=== PATIENT | female | born 1950 | race Caucasian/White ===

== ENCOUNTER 2022-06-24 12:28 | Outpatient (CLI) | payer MEDICARE, OTHER ==
--- NOTE | 2022-06-24 18:27 | DEXA Report ---
PROCEDURE: Dexa Spine and/or Hip INDICATIONS: POST MENOPAUSAL TECHNIQUE: Dual energy x-ray absorptiometry (DXA) was performed on a [employer] System. Regions measur ed are the AP Spine, femoral neck, and if needed forearm. COMPARISON: None. FINDINGS: Lumbar Spine: Bone Mineral Density 1.349 g/cm/cm,T score 1.4, normal Left Femoral Neck: Bone Mineral Density 0.941 g/cm/cm, T score -0.6, normal Left Hip: Bone Mineral Density 1.090 g/cm/cm,T score 0.7, normal (T score greater or equal to -1.0: NORMAL) (T score from -1.1 to -2.4: OSTEOPENIA) (T score less than or equal to -2.5 to: OSTEOPOROSIS) Impression: Normal bone mineral density Patients with diagnosis of osteoporosis or osteopenia should have regular bone mineral density assess ment. For those eligible for Medicare, routine testing is allowed once every 2 years. Testing frequ ency can be increased for patients who have rapidly progressing disease or for those who are receivin g medical therapy to restore bone mass. Reviewed by: Joaquín Lau MD on 06/24/2022 5:26 PM [place] Approved by: Joaquín Lau MD on 06/24/2022 5:26 PM [place] Station ID: [id number]
== END 2022-06-24 12:29 | disposition home or self-care (01) ==
LOC: DI 12:28
PROVIDERS: ATTEND Nurse Practitioner Acute Care
DX: Z78.0 Asymptomatic menopausal state (principal)

== ENCOUNTER 2023-04-13 13:16 | Outpatient (CLI) | payer MEDICARE, OTHER ==
[2023-04-13 19:41] LABS: BASOPHILS # (AUTO) 0.1 10^3/uL (0.0-0.1); BASOPHILS % (AUTO) 0.9 %; EOSINOPHILS # (AUTO) 0.1 10^3/uL (0.0-0.7); EOSINOPHILS % (AUTO) 1.4 %; HCT - HEMATOCRIT 36.8 % (37.0-47.0); HGB - HEMOGLOBIN 11.9 g/dL (12.0-16.0); LYMPHOCYTES # (AUTO) 2.6 10^3/uL (1.5-3.5); LYMPHOCYTES % (AUTO) 39.9 %; MEAN CORPUSCULAR HEMOGLOBIN 29.7 pg (27.0-31.0); MEAN CORPUSCULAR HGB CONC 32.3 g/dL (32.0-36.0); MEAN CORPUSCULAR VOLUME 91.8 fL (81.0-99.0); MEAN PLATELET VOLUME 9.9 fL (7.9-10.8); MONOCYTES # (AUTO) 0.4 10^3/uL (0.0-1.0); MONOCYTES % (AUTO) 6.5 %; NEUTROPHILS # (AUTO) 3.3 10^3/uL (1.5-6.6); PLT - PLATELET COUNT 226 10^3/uL (130-450); RED BLOOD COUNT 4.01 10^6/uL (4.20-5.40); RED CELL DISTRIBUTION WIDTH 13.1 % (12.0-15.0); WHITE BLOOD COUNT 6.4 x10^3/uL (4.8-10.8)
[2023-04-13 20:32] LABS: ALBUMIN 4.3 g/dL (3.2-5.5); ALBUMIN/GLOBULIN RATIO 1.7 (1.0-2.2); ALKALINE PHOSPHATASE 44 IU/L (42-121); ALT ALANINE AMINOTRANSFERASE 22 IU/L (10-60); AST ASPARTATE AMINOTRANSFERASE 19 IU/L (10-42); BILIRUBIN,TOTAL 0.6 mg/dL (0.2-1.0); BUN - BLOOD UREA NITROGEN 13 mg/dL (6-20); CALCIUM 9.5 mg/dL (8.5-10.3); CARBON DIOXIDE - CO2 27 mmol/L (21-32); CHLORIDE 107 mmol/L (101-111); CHOL/HDL RATIO 3.5 (<4.4); CHOLESTEROL 178 mg/dL; CREATININE 0.8 mg/dL (0.6-1.3); GFR - MDRD 71 (>89); GLUCOSE 91 mg/dL (74-104); HDL CHOLESTEROL 51 mg/dL; LDL CHOLESTEROL,CALCULATED 87 mg/dL; LDL/HDL RATIO 1.7 (<4.4); POTASSIUM 3.8 mmol/L (3.5-4.5); SODIUM 142 mmol/L (135-145); TOTAL PROTEIN 6.9 g/dL (6.4-8.9); TRIGLYCERIDES 199 mg/dL (48-352); VLDL CHOLESTEROL 40 mg/dL
[2023-04-13 20:40] LABS: THYROID STIMULATING HORMONE 5.68 uIU/mL (0.34-5.60)
[2023-04-15 08:10] LABS: HCV AB Non Reactive (Non Reactive)
== END 2023-04-13 13:17 | disposition home or self-care (01) ==
LOC: LAB.S 13:16
PROVIDERS: ATTEND Nurse Practitioner Acute Care
DX: E78.5 Hyperlipidemia, unspecified (principal); Z79.899 Other long term (current) drug therapy; E06.3 Autoimmune thyroiditis; Z11.59 Encounter for screening for other viral diseases
CPT/HCPCS: 36415; 80053; 80061; 83721; 84439; 84443; 85025; 86803

== ENCOUNTER 2023-04-20 07:42 | Outpatient (CLI) | payer MEDICARE, OTHER ==
--- NOTE | 2023-04-28 10:19 | Mammography Report ---
BILATERAL DIGITAL SCREENING MAMMOGRAM 3D/2D: 04/20/2023 CLINICAL: Routine screening. Family history of breast cancer. No prior exams were available for comparison. There are scattered areas of fibroglandular density in both breasts (category b / 25%-50% glandular t issue). There is an asymmetry in the right breast middle depth upper region seen on the mediolateral oblique view only. No other significant masses, calcifications, or other findings are seen in either breast. IMPRESSION: INCOMPLETE: NEEDS ADDITIONAL IMAGING EVALUATION The asymmetry in the right breast is indeterminate. A diagnostic mammogram and ultrasound is recomme nded. Based on the Tyrer Cuzick model (a risk assessment model) the patients lifetime risk is 6.2% and her 10 year risk is 4.6%. According to the ACR, ACS, and NCCN guidelines, an annual breast MRI exam sravan g with mammogram is recommended if the patients lifetime risk is 20% or greater. This exam was interpreted at Station ID: [id number]. NOTE: For mammograms, a report in lay terms will be sent to the patient. Approximately 15% of breast malignancies will not be visualized mammographically. In the management of a palpable breast mass, a negative mammogram must not discourage biopsy of a clinically suspicious lesion. Electronically Signed By: Melissa Guerrero M.D., PH.D eb/:04/28/2023 00:59:55 ACR BI-RADS Category 0: Incomplete 3340F PARENCHYMAL PATTERN: (A) - The breast(s) demonstrate(s) scattered fibroglandular densities. BI-RADS CATEGORY: (0) - 0 Mammo and [place] [id number] Immediate follow-up LATERALITY: (B)
== END 2023-04-20 07:43 | disposition home or self-care (01) ==
LOC: DI.S 07:42
DX: Z12.31 Encounter for screening mammogram for malignant neoplasm of breast (principal); Z80.3 Family history of malignant neoplasm of breast; R92.323 Mammographic fibroglandular density, bilateral breasts; R92.8 Other abnormal and inconclusive findings on diagnostic imaging of breast

== ENCOUNTER 2023-06-16 07:40 | Outpatient (CLI) | payer MEDICARE, OTHER ==
--- NOTE | 2023-06-16 15:55 | Mammography Report ---
UNILATERAL RIGHT DIGITAL DIAGNOSTIC MAMMOGRAM 3D/2D WITH SPOT COMPRESSION: 06/16/2023 CLINICAL: Patient returns today to evaluate an asymmetry in the right breast. Comparison is made to exam dated: 04/20/2023 mammogram - [facility]. There are scattered areas of fibroglandular density in the right breast (category b / 25%-50% glandul ar tissue). There is an asymmetry in the right breast middle depth superior region seen on the mediolateral obliq ue view only. This is seen in additional views. No other significant masses or calcifications are seen in the breast. IMPRESSION: INCOMPLETE: NEEDS ADDITIONAL IMAGING EVALUATION The asymmetry in the right breast middle depth superior region seen on the mediolateral oblique view only is indeterminate. An ultrasound is recommended. Based on the Tyrer Cuzick model (a risk assessment model) the patient's lifetime risk is 6.2% and her 10 year risk is 4.6%. According to the ACR, ACS, and NCCN guidelines, an annual breast MRI exam sravan g with mammogram is recommended if the patients lifetime risk is 20% or greater. This exam was interpreted at Station ID: [id number]. NOTE: For mammograms, a report in lay terms will be sent to the patient. Approximately 15% of breast malignancies will not be visualized mammographically. In the management of a palpable breast mass, a negative mammogram must not discourage biopsy of a clinically suspicious lesion. Electronically Signed By: Emmanuel Ocampo M.D. lc/:06/16/2023 09:27:00 ACR BI-RADS Category 0: Incomplete 3340F PARENCHYMAL PATTERN: (A) - The breast(s) demonstrate(s) scattered fibroglandular densities. BI-RADS CATEGORY: (0) - 0 Ultrasound [id number] Immediate follow-up LATERALITY: (B)
--- NOTE | 2023-06-16 15:55 | Ultrasound Report ---
LIMITED ULTRASOUND OF RIGHT BREAST: 06/16/2023 CLINICAL: Patient returns today to evaluate a focal asymmetry in the right breast. Comparison is made to exams dated: 06/16/2023 mammogram and 04/20/2023 mammogram - [facility]. Real-time ultrasound of the right breast 11-1 o'clock region was performed. Hoff scale images of the real-time examination were reviewed. No significant sonographic findings in the breast. IMPRESSION: PROBABLY BENIGN There is no abnormality seen in the right breast to correspond with the mammography finding. 11-1:00 were scanned. A follow-up mammogram in 6 months is recommended to demonstrate stability. This exam was interpreted at Station ID: [id number]. Electronically Signed By: Emmanuel Ocampo M.D. lc/:06/16/2023 09:28:11 Ultrasound BI-RADS: 3 Probably benign BI-RADS CATEGORY: (3) - 3 Mammogram [id number] 6 month follow-up LATERALITY: (B)
== END 2023-06-16 07:41 | disposition home or self-care (01) ==
LOC: DI 07:40
PROVIDERS: ATTEND Nurse Practitioner Acute Care
DX: R92.8 Other abnormal and inconclusive findings on diagnostic imaging of breast (principal); R92.321 Mammographic fibroglandular density, right breast

== ENCOUNTER 2023-10-19 06:45 | Outpatient (CLI) | payer MEDICARE, OTHER | END 2023-10-19 23:46 | disposition critical access hospital (66) | LOC: EMS 06:45 | DX: R10.32 Left lower quadrant pain (principal); R10.814 Left lower quadrant abdominal tenderness; M54.50 Low back pain, unspecified; R11.2 Nausea with vomiting, unspecified; R42 Dizziness and giddiness; R61 Generalized hyperhidrosis; R00.1 Bradycardia, unspecified | CPT/HCPCS: A0425; A0427 ==

== ENCOUNTER 2023-10-19 07:22 | Day surgery (SDC) | payer MEDICARE, OTHER ==
[2023-10-19] MEDS: SODIUM CHLORIDE 0.9% 1,000 ML IV STA (07:42)
[2023-10-19] MEDS: MORPHINE 2 MG/ML CARPUJECT IVP STA ×2 (07:43→09:27)
[2023-10-19] MEDS: ONDANSETRON 4 MG/2 ML VIAL IVP STA (07:48)
[2023-10-19 07:55] LABS: BASOPHILS # (AUTO) 0.1 10^3/uL (0.0-0.1); BASOPHILS % (AUTO) 0.4 %; EOSINOPHILS # (AUTO) 0.1 10^3/uL (0.0-0.7); EOSINOPHILS % (AUTO) 0.9 %; HCT - HEMATOCRIT 36.5 % (37.0-47.0); HGB - HEMOGLOBIN 11.9 g/dL (12.0-16.0); LYMPHOCYTES # (AUTO) 2.8 10^3/uL (1.5-3.5); LYMPHOCYTES % (AUTO) 18.3 %; MEAN CORPUSCULAR HGB CONC 32.6 g/dL (32.0-36.0); MEAN PLATELET VOLUME 9.3 fL (7.9-10.8); MONOCYTES % (AUTO) 6.6 %; NEUTROPHILS # (AUTO) 11.2 10^3/uL (1.5-6.6); NEUTROPHILS % (AUTO) 73.4 %; PLT - PLATELET COUNT 236 10^3/uL (130-450); RED CELL DISTRIBUTION WIDTH 13.3 % (12.0-15.0); WHITE BLOOD COUNT 15.2 x10^3/uL (4.8-10.8)
[2023-10-19 08:00] LABS: INR 2.5 (0.8-1.2)
[2023-10-19] MEDS ORDERED: iohexoL-300 100 ML VIAL ONE (08:09)
[2023-10-19 08:10] LABS: ALBUMIN 4.1 g/dL (3.2-5.5); ALBUMIN/GLOBULIN RATIO 1.6 (1.0-2.2); BILIRUBIN,TOTAL 0.6 mg/dL (0.2-1.0); CALCIUM 9.7 mg/dL (8.5-10.3); CREATININE 1.8 mg/dL (0.6-1.3); TOTAL PROTEIN 6.7 g/dL (6.4-8.9)
--- NOTE | 2023-10-19 08:20 | ED Physician Documentation ---
PD HPI ABD PAIN - Stated complaint Stated Complaint: ABD PX/N/V - Chief complaint Chief Complaint: Abd Pain - History obtained from History obtained from: Patient, EMS - Additional information Additional information: 73-year-old female presents for evaluation of left lower quadrant abdominal pain with nausea and vomiting for 1 day. Symptoms began yesterday but were intermittent, this morning when patient woke up pain was constant and severe, prompting a call to 911. Patient received 150 mcg of fentanyl in route. Patient continuing to complain of left lower quadrant pain on arrival. She has never felt pain like this before. Denies hx of diverticulitis or kidney stones Review of Systems Constitutional: denies: Fever, Chills Cardiac: denies: Chest pain / pressure, Palpitations, Calf pain Respiratory: denies: Dyspnea, Cough, Wheezing GI: reports: Abdominal Pain, Nausea, Vomiting. denies: Constipation, Diarrhea Musculoskeletal: denies: Neck pain, Back pain, Extremity pain Neurologic: denies: Generalized weakness, Focal weakness, Numbness PD PAST MEDICAL HISTORY - Past Medical History Past Medical History: Yes Cardiovascular: Hypertension, High cholesterol Endocrine/Autoimmune: HyPOthyroidism GI: Other Other Past Medical History: IBS - Present Medications Home Medications: Ambulatory Orders Medication Instructions Recorded Confirmed Atorvastatin [Lipitor] 20 mg PO QPM 10/19/23 10/19/23 Docusate Sodium 100Mg Capsule 100 mg PO DAILY #7 cap 10/19/23 [Colace 100Mg Capsule] Levothyroxine [Synthroid] 125 mcg PO QDAC 10/19/23 10/19/23 Rivaroxaban [Xarelto] 20 mg PO DAILY 10/19/23 10/19/23 cephALEXin [Keflex] 500 mg PO ONCE #1 cap 10/19/23 oxyCODONE [Roxicodone] 5 mg PO Q4H PRN #6 tablet 10/19/23 - Allergies Allergies/Adverse Reactions: Allergies Allergy/AdvReac Type Severity Reaction Status Date / Time Sulfa (Sulfonamide AdvReac Anaphylaxis Verified 10/19/23 07:33 Antibiotics) - Social History Does the pt smoke?: No Smoking Status: Never smoker Does the pt drink ETOH?: No Does the pt have substance abuse?: No PD ED PE NORMAL - Vitals Vital signs reviewed: Yes - General General: Alert and oriented X 3, Well developed/nourished, Other (uncomfortable, in pain) - Neck Neck: Supple, no meningeal sign - Cardiac Cardiac: RRR - Respiratory Respiratory: No respiratory distress, Clear bilaterally - Abdomen Abdomen: Soft, Non distended, Other (LLQ tenderness to deep palpation) - Derm Derm: Normal color, Warm and dry, No rash - Extremities Extremities: No deformity, No tenderness to palpate, Normal ROM s pain, No edema - Neuro Neuro: Alert and oriented X 3, salvager helper 2-12 intact, No motor deficit, Normal speech Results - Vitals Vitals: Vital Signs - 24 hr 10/19/23 10/19/23 10/19/23 07:28 09:00 11:00 Temperature 36.1 C L Heart Rate 55 L 55 L 67 Respiratory 16 18 23 Rate Blood Pressure 153/64 H 166/86 H 156/74 H O2 Saturation 95 98 100 10/19/23 10/19/23 10/19/23 12:36 12:40 12:45 Temperature 36.5 C Heart Rate 77 70 68 Respiratory 16 14 26 H Rate Blood Pressure 122/67 127/65 122/64 O2 Saturation 100 98 100 10/19/23 10/19/23 10/19/23 12:50 12:58 12:59 Temperature 36.7 C 36.7 C Heart Rate 72 65 64 Respiratory 17 14 14 Rate Blood Pressure 123/59 L 132/71 H 132/75 H O2 Saturation 93 94 94 10/19/23 10/19/23 10/19/23 13:22 13:50 14:24 Temperature Heart Rate 59 L 65 59 L Respiratory 14 18 20 Rate Blood Pressure 134/73 H 144/70 H 148/63 H O2 Saturation 93 93 98 Oxygen O2 Source Room air - Labs Labs: Laboratory Tests 10/19/23 10/19/23 10/19/23 07:35 07:35 07:35 WBC 15.2 H RBC 4.10 L Hgb 11.9 L Hct 36.5 L MCV 89.0 MCH 29.0 MCHC 32.6 RDW 13.3 Plt Count 236 MPV 9.3 Neut # (Auto) 11.2 H Lymph # (Auto) 2.8 [place] # (Auto) 1.0 Eos # (Auto) 0.1 Baso # (Auto) 0.1 Absolute Nucleated RBC 0.00 Nucleated RBC % 0.0 PT 26.0 H INR 2.5 H Sodium 138 Potassium 4.0 Chloride 104 Carbon Dioxide 22 Anion Gap 12.0 BUN 29 H Creatinine 1.8 H Estimated GFR (MDRD) 28 L Glucose 115 H Calcium 9.7 Total Bilirubin 0.6 AST 14 ALT 18 Alkaline Phosphatase 35 L Total Protein 6.7 Albumin 4.1 Globulin 2.6 Albumin/Globulin Ratio 1.6 Lipase 34 Urine Color Urine Clarity Urine pH Ur Specific [place] Urine Protein Urine Glucose (UA) Urine Ketones Urine Occult Blood Urine Nitrite Urine Bilirubin Urine Urobilinogen Ur Leukocyte Esterase Urine RBC Urine WBC Ur Squamous Epith Cells Urine Bacteria Ur Microscopic Review Urine Culture Comments 10/19/23 08:56 WBC RBC Hgb Hct MCV MCH MCHC RDW Plt Count MPV Neut # (Auto) Lymph # (Auto) [place] # (Auto) Eos # (Auto) Baso # (Auto) Absolute Nucleated RBC Nucleated RBC % PT INR Sodium Potassium Chloride Carbon Dioxide Anion Gap BUN Creatinine Estimated GFR (MDRD) Glucose Calcium Total Bilirubin AST ALT Alkaline Phosphatase Total Protein Albumin Globulin Albumin/Globulin Ratio Lipase Urine Color YELLOW Urine Clarity CLEAR Urine pH 6.0 Ur Specific [place] 1.020 Urine Protein NEGATIVE Urine Glucose (UA) NEGATIVE Urine Ketones TRACE Urine Occult Blood LARGE H Urine Nitrite NEGATIVE Urine Bilirubin NEGATIVE Urine Urobilinogen 0.2 (NORMAL) Ur Leukocyte Esterase NEGATIVE Urine RBC 11-25 H Urine WBC 0-3 Ur Squamous Epith Cells NONE SEEN Urine Bacteria None Seen Ur Microscopic Review INDICATED Urine Culture Comments NOT INDICATED PD Medical Decision Making - ED course Complexity details: reviewed old records, reviewed results, re-evaluated patient, considered differential, d/w patient, d/w nursing consultant ED course: Lower abdominal pain with nausea and vomiting. Abdomen is soft but she is reproducibly tender to palpation in the left lower quadrant without peritoneal signs. Has received fentanyl prior to arrival but is still in pain. Additional pain and nausea medications ordered. Labs and imaging ordered. Laboratory work is reviewed, patient has new elevation in creatinine compared to March 2023. Preliminary review of CT scan seems to show swelling behind the left kidney with small stone present. CT read as 3 mm stone with severe hydronephrosis. Patient has continued to require doses of pain medication and nausea medication. Patient's case discussed with Dr. Ng of urology, who stated that he could place the patient on the schedule for this afternoon and take her for stent placement. Maintenance fluids ordered, patient to be kept n.p.o. for anticipated procedure. Departure - Departure Disposition: ED Transfer to [facility] Clinical Impression: Kidney stone, RAEANN (acute kidney injury) Condition: Good
[2023-10-19 09:07] LABS: BILIRUBIN,URINE NEGATIVE (NEGATIVE); GLUCOSE, URINE (UA) NEGATIVE (NEGATIVE); KETONES,URINE (UA) TRACE mg/dL (NEGATIVE); LEUKOCYTE ESTERASE, URINE NEGATIVE (NEGATIVE); NITRITE,URINE NEGATIVE (NEGATIVE); OCCULT BLOOD,URINE LARGE (NEGATIVE); PROTEIN,URINE NEGATIVE (NEGATIVE); UROBILINOGEN,URINE 0.2 (NORMAL) E.U./dL (NORMAL)
[2023-10-19 09:09] LABS: CLARITY,URINE CLEAR (CLEAR)
[2023-10-19 09:18] LABS: BACTERIA,URINE None Seen /HPF (None Seen); SQUAMOUS EPITHELIAL CELL,UR NONE SEEN (<= Few); WBC,URINE 0-3 /HPF (0-5)
[2023-10-19] MEDS: PROMETHAZINE INJ 25 MG in SODIUM CHLORIDE 0.9% 50 ML IV STA (09:27)
--- NOTE | 2023-10-19 09:34 | CT Report ---
PROCEDURE: Abdomen/Pelvis WO INDICATIONS: LLQ PAIN, N/V TECHNIQUE: A CT scan of the abdomen and pelvis was performed without the use of intravenous contrast. Images we re recorded and evaluated at appropriate window settings. Reformats: coronal and sagittal. For radiat ion dose reduction, the following was used: automated exposure control, adjustment of mA and/or kV ac cording to patient size. COMPARISON: None. FINDINGS: Image quality: Diagnostic. Lower chest: Unremarkable. Liver: No contour-deforming mass benign calcification at the dome of the liver. Gallbladder: No radiopaque stones or wall thickening. Biliary tree: No intrahepatic or extrahepatic dilation, accounting for age. Spleen: No splenomegaly. Pancreas: No pancreatic ductal dilation. Adrenals: No adrenal nodule. Kidneys and ureters: At the level of L3-L4, there is a 3 mm obstructing left ureteral stone which res ults in severe left hydronephrosis and left perinephric stranding. No right renal stone or hydronephr osis. There are right peripelvic cysts. Stomach, bowel and peritoneum: No gastric or small bowel dilation. No abnormal wall thickening. No pa thologic free fluid. Lymph nodes: No central or retroperitoneal adenopathy. Vessels: No infrarenal aortic aneurysm. Reproductive organs: Unremarkable. Bladder: Bladder wall thickness is normal, accounting for underdistention. No calcified bladder stone s. Pelvic lymph nodes: No adenopathy by size criteria. Bones: No aggressive osseous abnormality. Other: No significant ventral or inguinal hernia. IMPRESSION: A 3 mm stone obstructs the proximal left ureter at the level of L3-L4 resulting in severe left hydron ephrosis and perinephric stranding. Reviewed by: Alex Huertas MD on 10/19/2023 9:33 AM PDT Approved by: Alex Huertas MD on 10/19/2023 9:33 AM PDT Station ID: [id number]
[2023-10-19] MEDS: SODIUM CHLORIDE 0.9% 1,000 ML IV SCH (10:09)
[2023-10-19] MEDS ORDERED: LIDOCAINE JELLY 2% 6 ML JEL.PF.APP ONE (10:15)
[2023-10-19] MEDS ORDERED: iohexoL-240 10 ML VIAL IVP ONE (10:15)
[2023-10-19] MEDS ORDERED: ONDANSETRON 4 MG/2 ML VIAL ONE (10:31)
[2023-10-19] MEDS ORDERED: DEXAMETHASONE 4 MG/ML VIAL ONE (10:31)
[2023-10-19] MEDS ORDERED: LIDOCAINE-PF 2% 10 ML AMP SUBQ ONE ×2 (10:31→12:11)
[2023-10-19] MEDS ORDERED: PROPOFOL 200 MG/20 ML VIAL IVP ONE ×2 (10:31→12:11)
[2023-10-19] MEDS ORDERED: fentaNYL 100 MCG/2 ML VIAL ONE (10:34)
[2023-10-19] MEDS ORDERED: METOCLOPRAMIDE 10 MG/2 ML VIAL IVP PRN (11:08)
[2023-10-19] MEDS ORDERED: ATROPINE ABBOJECT 1 MG/10 ML SYRINGE IVP PRN (11:08)
[2023-10-19] MEDS ORDERED: MORPHINE 2 MG/ML CARPUJECT IVP PRN (11:08)
[2023-10-19] MEDS ORDERED: NALOXONE 0.4 MG/ML VIAL IVP PRN (11:08)
[2023-10-19] MEDS ORDERED: fentaNYL 100 MCG/2 ML VIAL IVP PRN (11:08)
[2023-10-19] MEDS ORDERED: HYDROmorphone 0.5 MG/0.5 ML SYRINGE IVP PRN (11:08)
[2023-10-19] MEDS ORDERED: ONDANSETRON 4 MG/2 ML VIAL IVP PRN ×2 (11:08→12:50)
[2023-10-19] MEDS ORDERED: ePHEDrine 50 MG/ML VIAL IVP PRN (11:08)
--- NOTE | 2023-10-19 11:08 | ANESTHESIA ---
Pre-Anesthesia VS, & Labs - Diagnosis L renal stone - Procedure L cysto with stent placement Vital Signs: Temp Pulse Resp BP Pulse Ox O2 Flow Rate 36.1 C L 55 L 18 166/86 H 98 10/19/23 07:28 10/19/23 09:00 10/19/23 09:00 10/19/23 09:00 10/19/23 09:00 Height: 5 ft 5 in Weight (kg): 111.5 kg Body Mass Index: 40.8 BMI Classification: Morbidly Obese - NPO >8 hours - Is Patient ?: No - Lab Results Current Lab Results: Laboratory Tests 10/19/23 07:35: Sodium 138, Potassium 4.0, Chloride 104, Carbon Dioxide 22, Anion Gap 12.0, BUN 29 H, Creatinine 1.8 H, Estimated GFR (MDRD) 28 L, Glucose 115 H, Calcium 9.7, Total Bilirubin 0.6, AST 14, ALT 18, Alkaline Phosphatase 35 L, Total Protein 6.7, Albumin 4.1, Globulin 2.6, Albumin/Globulin Ratio 1.6, L ipase 34 10/19/23 07:35: PT 26.0 H, INR 2.5 H 10/19/23 07:35: WBC 15.2 H, RBC 4.10 L, Hgb 11.9 L, Hct 36.5 L, MCV 89.0, MCH 29.0, MCHC 32.6, RDW 13.3, Plt Count 236, MPV 9.3, Neut # (Auto) 11.2 H, Lymph # (Auto) 2.8, [place] # (Auto) 1.0, Eos # (Auto) 0.1, Baso # (Auto) 0.1, Absolute Nucleated RBC 0.00, Nucleated RBC % 0.0 Lab results reviewed: Yes Fish Bones: 10/19/23 07:35 10/19/23 07:35 Home Medications and Allergies Home Medications: Ambulatory Orders Atorvastatin [Lipitor] 20 mg PO QPM 10/19/23 Levothyroxine [Synthroid] 125 mcg PO QDAC 10/19/23 Rivaroxaban [Xarelto] 20 mg PO DAILY 10/19/23 Active Medications Sodium Chloride (Normal Saline 0.9%) 1,000 mls @ 125 mls/hr IV .Q8H LIANET Last Admin: 10/19/23 10:09 Dose: 125 mls/hr Atorvastatin [Lipitor] 20 mg PO QPM 10/19/23 Levothyroxine [Synthroid] 125 mcg PO QDAC 10/19/23 Rivaroxaban [Xarelto] 20 mg PO DAILY 10/19/23 Allergies/Adverse Reactions: Allergies Allergy/AdvReac Type Severity Reaction Status Date / Time Sulfa (Sulfonamide AdvReac Anaphylaxis Verified 10/19/23 07:33 Antibiotics) Anes History & Medical History - Anesthetic History Anesthesia Complications: reports: No previous complications, Post-Operative Nausea/Vomiting Family history of Anesthesia Complications: Denies Family history of Malignant Hyperthermia: Denies - Medical History Cardiovascular: reports: Hypertension, High cholesterol Gastrointestinal: reports: Other Endocrine/Autoimmune: reports: HyPOthyroidism Blood Disorders: reports: Anemia (protein S deficiency (xerelto daily for hx PEs)) Smoking Status: Never smoker History of Cancer?: No Other Past Medical History: IBS - Surgical History Orthopedic: reports: Other (multiple foot surgeries) Exam General: Alert, Oriented x3, Cooperative Dental: WNL Mouth Openin Fingerbreadth Neck Mobility: Normal Mallampati classification: II Thyromental Distance: 4-6 cm Respiratory: Lungs clear, Normal breath sounds, No respiratory distress Cardiovascular: Regular rate Neurological: Normal speech Mental/Cognitive Status: Alert/Oriented X3, Normal for patient Plan Anesthesia Type: General Consent for Procedure(s) Verified and Reviewed: Yes Code Status: Attempt Resuscitation ASA classification: 3-Severe systemic disease Is this case an emergency?: Yes
[2023-10-19] MEDS ORDERED: LACTATED RINGERS 1,000 ML IV SCH (12:00)
--- NOTE | 2023-10-19 12:05 | CONSULTATION NOTE ---
Referring Provider Name of Referring Provider:: ER Provider Consult Date: 10/19/23 Chief Complaint - Chief Complaint Chief Complaint: Left flank pain History of Present Illness - Admitted From Admitted From:: ER - History Obtained From Records Reviewed: ER, hospital History obtained from: patient, EMR Exam Limitations: none - History of Present Illness HPI Comment/Other: Sofya is a 73-year-old woman with no urological history who presented to the hospital ER at [facility] with severe left flank pain. She had a CT scan which showed a 3 mm proximal obstructing ureteral stone. Despite multiple rounds of pain medications she could not get comfortable and was still in a lot of pain. She also had noted RAEANN with a baseline creatinine 1.0, now 1.8. Urinalysis is not concerning for infection. She is hemodynamically stable. She states this is her first stone. She states she is in continued pain. She has been n.p.o. as of last night. She has history of Diane's thyroiditis, history of DVT and protein S deficiency on Xarelto. History - Past Medical History Cardiovascular: reports: Hypertension, High cholesterol Endocrine/Autoimmune: reports: HyPOthyroidism GI: reports: Other Other Past Medical History: IBS - Past Surgical History Ortho: reports: Other (multiple foot surgeries) Meds/Allgy - Home Medications Home Medications: Ambulatory Orders Medication Instructions Recorded Confirmed Atorvastatin [Lipitor] 20 mg PO QPM 10/19/23 10/19/23 Levothyroxine [Synthroid] 125 mcg PO QDAC 10/19/23 10/19/23 Rivaroxaban [Xarelto] 20 mg PO DAILY 10/19/23 10/19/23 - Allergies Allergies/Adverse Reactions: Allergies Allergy/AdvReac Type Severity Reaction Status Date / Time Sulfa (Sulfonamide AdvReac Anaphylaxis Verified 10/19/23 07:33 Antibiotics) Exam - Vital Signs Reviewed Vital Signs: Yes Vital Signs: Vital Signs x48h Temp Pulse Resp BP Pulse Ox 10/19/23 11:00 67 23 156/74 H 100 10/19/23 09:00 55 L 18 166/86 H 98 10/19/23 07:28 36.1 C L 55 L 16 153/64 H 95 - Physical Exam General Appearance: positive: Mild distress Respiratory: positive: Breath sounds nml Cardiovascular: positive: Regular rate & rhythm Conclusion and Plan - Lab Results Laboratory Results 10/19/23 08:56: Urine Color YELLOW, Urine Clarity CLEAR, Urine pH 6.0, Ur Specific [place] 1.020, Urine Protein NEGATIVE, Urine Glucose (UA) NEGATIVE, Urine Ketones TRACE, Urine Occult Blood LARGE H, Urine Nitrite NEGATIVE, Urine Bilirubin NEGATIVE, Urine Urobilinogen 0.2 (NORMAL), Ur Leukocyte Esterase NEGATIVE, Urine RBC 11-25 H, Urine WBC 0-3, Ur Squamous Epith Cells NONE SEEN, Urine Bacteria None Seen, Ur Microscopic Review INDICATED, Urine Culture Comments NOT INDICATED 10/19/23 07:35: Sodium 138, Potassium 4.0, Chloride 104, Carbon Dioxide 22, Anion Gap 12.0, BUN 29 H, Creatinine 1.8 H, Estimated GFR (MDRD) 28 L, Glucose 115 H, Calcium 9.7, Total Bilirubin 0.6, AST 14, ALT 18, Alkaline Phosphatase 35 L, Total Protein 6.7, Albumin 4.1, Globulin 2.6, Albumin/Globulin Ratio 1.6, Lipase 34 10/19/23 07:35: PT 26.0 H, INR 2.5 H 10/19/23 07:35: WBC 15.2 H, RBC 4.10 L, Hgb 11.9 L, Hct 36.5 L, MCV 89.0, MCH 29.0, MCHC 32.6, RDW 13.3, Plt Count 236, MPV 9.3, Neut # (Auto) 11.2 H, Lymph # (Auto) 2.8, [place] # (Auto) 1.0, Eos # (Auto) 0.1, Baso # (Auto) 0.1, Absolute Nucleated RBC 0.00, Nucleated RBC % 0.0 - Diagnostic Imaging Results Diagnostic Imaging Results: positive: Read independently - Diagnosis Diagnosis: Left ureteral stone with hydronephrosis. Acute kidney injury related to obstructive uropathy. Persistent pain - Consultation Note Consultation Note: 73-year-old woman with history of obesity, Diane's thyroiditis, DVT and protein S deficiency on Xarelto presents with 3 mm proximal left obstructive ureteral stone with ipsilateral hydroureteronephrosis, acute kidney injury, persistent pain refractory to IV medications - Plan Plan: We will take her for a cystoscopy, left ureteral stent placement in the OR. We discussed this procedure at length including the intraoperative, postoperative management. We discussed that this will not pass the stone and she will require further ureteroscopy procedure in the future. The stent will improve her pain and allow for easier removal of the stone in the future. It will also allow for her kidney to decompress. We discussed the risk of this procedure including: Risk of infection, bleeding, injury to adjacent structures, need for additional procedures, stent colic, anesthesia risks The patient states understanding consents the above plan. She has been consented and marked
[2023-10-19] MEDS: LIDOCAINE 2% URO-JET 5 ML SYRINGE UR ONE (12:23)
[2023-10-19] MEDS: SODIUM CHLORIDE 0.9% 700 ML IV ONE (12:36)
[2023-10-19] MEDS ORDERED: HYDROcod/ACETAM 5/325 MG TABLET PO PRN (12:50)
--- NOTE | 2023-10-19 13:04 | Discharge Plan ---
Discharge Plan Problem Reviewed?: Yes Disposition: Home, Self Care Condition: Good Prescriptions: Docusate Sodium 100Mg Capsule [Colace 100Mg Capsule] 100 mg PO DAILY #7 cap cephALEXin [Keflex] 500 mg PO ONCE #1 cap oxyCODONE [Roxicodone] 5 mg PO Q4H PRN #6 tablet PRN Reason: Pain Diet: Regular Activity Restrictions: No Restrictions Shower Restrictions: No Driving Restrictions: No Instruction Topics: Stents Ureteral Additional Instructions or Follow Up instructions: You will be contacted for follow-up with Dr. Ng in the next few weeks. He was seen in the office and he will remove the stent in the office. You do not have to do it especially before this. You can eat before this. He can take all your normal medications before this. You can drive yourself to this appointment. You do however need to take your antibiotic as prescribed on the way to that appointment No Smoking: If you smoke, Please STOP! Call for help. Follow-up with: David Ng MD [Provider Admit Priv/Credential] -
--- NOTE | 2023-10-19 13:09 | OPERATIVE REPORT ---
Operative Report - General Procedure Date: 10/19/23 Planned Procedure: Cystoscopy, left ureteral stent placement Pre-Op Diagnosis: Left ureteral stone Procedure Performed: Cystoscopy, left ureteral stent placement, cystolitholopaxy 3mm stone Post Op Diagnosis: Bladder stone - Procedure Note Primary Surgeon: Hernandez Anesthesia Provider: STEFANIE Hartley Anesthesia Technique: General LMA Pathology: bladder stone Indications: 3mm proximal left ureteral stone Findings: Stone passed, bladder stone seen and removed Complications: none - Other Other Information/Narrative: After informed consent was obtained the patient was brought to the OR and laid the supine position. The patient was anesthetized per anesthesia protocol draped in usual sterile fashion in dorsolithotomy position. A formal timeout was performed reconfirming the patient, procedure and laterality. 22 Tajik scope was passed easily into urinary bladder. Bladder inspected and full and she was noted to have 3 mm stone with some blood around it sitting in the bladder. This is likely her ureteral stone which must have passed while she was being induced with anesthesia. This was grasped and removed and sent for analysis as a bladder stone A sensor wire was gently placed through the left ureteral orifice and up into the kidney. A 6 Tajik 24 cm double-J stent was placed with good curling in the kidney and good curling in the bladder. This was performed under fluoroscopic and cystoscopic guidance. No other radiopacities were seen. Her bladder was emptied and a Uro-Jet was placed. This concluded the procedure the patient tolerated procedure well. She will follow-up in a few weeks time for stent removal in the office
--- NOTE | 2023-10-19 13:11 | ANESTHESIA POST OP EVALUATION ---
Anesthesia Post Eval - Post Anesthesia Eval Vitals: Last Vital Signs Temp 36.7 C 10/19/23 12:59 Pulse 64 10/19/23 12:59 Resp 14 10/19/23 12:59 BP 132/75 H 10/19/23 12:59 Pulse Ox 94 10/19/23 12:59 O2 Flow Rate CV Function Including HR & BP: Stable Pain Control: Satisfactory Nausea & Vomiting: Negative Mental Status: Baseline Respiratory Status: Airway Patent Hydration Status: Satisfactory Anesthesia Complications: None
[2023-10-19 14:28] VITALS: BP 148/63; O2SAT 98
--- NOTE | 2023-10-19 17:17 | XRAY Report ---
PROCEDURE: OR C-Arm Procedure INDICATIONS: LEFT URETERAL STENT PLACEMENT FLUORO TIME: 0.01 MIN TECHNIQUE: Single intraoperative fluoroscopic image of left abdomen was obtained. COMPARISON: CT of abdomen and pelvis from the same day. FINDINGS: Intraoperative fluoroscopic image shows a left-sided ureteral stent in place. IMPRESSION: Fluoroscopy guidance was provided intraoperatively for left-sided ureteral stent placement performed by ordering physician. Reviewed by: Axel Baird MD on 10/19/2023 5:16 PM PDT Approved by: Axel Baird MD on 10/19/2023 5:16 PM PDT Station ID: [id number]
[2023-10-26 14:09] LABS: CALCIUM OXALATE MONOHYDRATE 100 % (.); STONE COLOR Brown (.); STONE SIZE 3x3 mm (.); STONE WEIGHT 17 mg (.)
== END 2023-10-19 11:46 | disposition home or self-care (01) ==
LOC: EDBD → EDUNIT# → ED 07:22 → SDS 11:45
PROVIDERS: ATTEND Urology
PROC: 0T778DZ Dilation of Left Ureter with Intraluminal Device, Via Natural or Artificial Opening Endoscopic (ICD-10-PCS; 2023-10-19)
PROC: 0TCB8ZZ Extirpation of Matter from Bladder, Via Natural or Artificial Opening Endoscopic (ICD-10-PCS; principal; 2023-10-19 12:00)
DX: N21.0 Calculus in bladder (principal); I10 Essential (primary) hypertension; N17.9 Acute kidney failure, unspecified; E03.9 Hypothyroidism, unspecified; E66.01 Morbid (severe) obesity due to excess calories; Z68.41 Body mass index [BMI] 40.0-44.9, adult; Z86.711 Personal history of pulmonary embolism; Z79.01 Long term (current) use of anticoagulants
CPT/HCPCS: 36415; 52315; 74176; 80053; 81001; 82365; 83690; 85025; 85610; 93005; 96365; 96375; 96376; 99285; C1758; C2617; J7040; 81003; 87086; Q9966

== ENCOUNTER 2024-02-07 07:44 | Outpatient (CLI) | payer MEDICARE, OTHER ==
--- NOTE | 2024-02-07 10:00 | Mammography Report ---
UNILATERAL RIGHT DIGITAL DIAGNOSTIC MAMMOGRAM 3D/2D: 02/07/2024 CLINICAL: Patient returns for a 6 month follow up of the right breast. Comparison is made to exams dated: 06/16/2023 mammogram, 04/20/2023 mammogram, and 06/16/2023 ultrasound - [facility]. There are scattered areas of fibroglandular density (category b / 25%-50% glandular tissue). There is an asymmetry in the right breast middle depth superior region seen on the mediolateral obliq ue view only. This is not significantly changed. The is much less prominent on additional spot compr ession view. No other significant masses or calcifications are seen in the breast. IMPRESSION: INCOMPLETE: NEED ADDITIONAL IMAGING EVALUATION The asymmetry in the right breast middle depth superior region is most likely is fibroglandular tissu e and is probably benign. A follow-up mammogram in 6 months is recommended to demonstrate stability. Patient will be due for left breast mammogram at that time. Exam findings were conveyed to the patient. Based on the Tyrer Cuzick model (a risk assessment model) the patient's lifetime risk is 5.8% and her 10 year risk is 4.8%. According to the ACR, ACS, and NCCN guidelines, an annual breast MRI exam sravan g with mammogram is recommended if the patient's lifetime risk is 20% or greater. This exam was interpreted at Station ID: [id number]. NOTE: For mammograms, a report in lay terms will be sent to the patient. Approximately 15% of breast malignancies will not be visualized mammographically. In the management of a palpable breast mass, a negative mammogram must not discourage biopsy of a clinically suspicious lesion. Electronically Signed By: Grabiel Siu M.D. slc/:02/07/2024 08:18:03 ACR BI-RADS Category 0: Incomplete: Need Additional Imaging Evaluation PARENCHYMAL PATTERN: (A) - The breast(s) demonstrate(s) scattered fibroglandular densities. BI-RADS CATEGORY: (0) - 0 Mammogram [id number] 6 month follow-up LATERALITY: (B)
== END 2024-02-07 07:45 | disposition home or self-care (01) ==
LOC: DI 07:44
PROVIDERS: ATTEND Nurse Practitioner Acute Care
DX: R92.8 Other abnormal and inconclusive findings on diagnostic imaging of breast (principal)